=== PATIENT | male | born 1980 | race Caucasian/White ===

== ENCOUNTER 2024-08-25 07:32 | Day surgery (SDC) | payer OTHER ==
[2024-08-23 13:39] VITALS: BMI 38.2
[2024-08-25] MEDS ORDERED: Ropivacaine 0.2% HCl/PF 20 ML ONE (08:27)
[2024-08-25] MEDS ORDERED: fentaNYL 50 mcg/mL 1 mL Vial ONE (08:27)
[2024-08-25] MEDS ORDERED: Ropivacaine 0.5% HCl/PF (150 MG/30 ML VIAL) ONE (08:27)
[2024-08-25] MEDS ORDERED: Midazolam HCl 2 mg/2 ml Vial ONE (08:27)
[2024-08-25] MEDS ORDERED: CEFAZOLIN 2 GM VIAL ONE (08:31)
[2024-08-25] MEDS ORDERED: Lidocaine 1% (PF) 30 ML VIAL ONE (08:46)
[2024-08-25] MEDS ORDERED: EPINEPHrine 1 MG/ML VIAL ONE (08:52)
[2024-08-25] MEDS ORDERED: PROPOFOL 20 ML ONE ×2 (09:04→09:10)
[2024-08-25] MEDS ORDERED: Ondansetron PF 4 MG/2 ML Vial ONE (09:05)
[2024-08-25] MEDS ORDERED: Lidocaine 1% PF 5 ML VIAL ONE (09:05)
[2024-08-25] MEDS ORDERED: Ondansetron PF 4 MG/2 ML Vial IVP PRN (09:15)
[2024-08-25] MEDS ORDERED: HYDROcodone/Acetaminophen 10/325 mg Tablet PO PRN ×2 (09:15)
[2024-08-25] MEDS ORDERED: fentaNYL 50 mcg/mL 1 mL Vial SLOW IVP PRN (09:15)
[2024-08-25] MEDS ORDERED: traMADol HCl 50 MG TAB PO PRN ×2 (09:15)
[2024-08-25] MEDS ORDERED: Ropivacaine 0.2% 550 ML 550 ML NERVE BLCK SCH (09:15)
[2024-08-25] MEDS ORDERED: Zolpidem Tartrate 5 MG TAB PO PRN (09:15)
[2024-08-25] MEDS ORDERED: Promethazine HCl 25 MG/ML VIAL IM PRN (09:15)
[2024-08-25] MEDS ORDERED: Ketorolac Tromethamine 30 MG (1 mL) VIAL ONE (09:15)
[2024-08-25] MEDS ORDERED: fentaNYL PF 100 MCG/2 ML SYRINGE ONE (11:36)
== END 2024-08-25 14:37 | disposition home or self-care (01) ==
LOC: SDC 07:32
PROVIDERS: ATTEND Orthopaedic Surgery
PROC: 0LQ60ZZ Repair Left Lower Arm and Wrist Tendon, Open Approach (ICD-10-PCS; principal; 2024-08-25)
DX: S46.212A Strain of muscle, fascia and tendon of other parts of biceps, left arm, initial encounter (principal); E78.5 Hyperlipidemia, unspecified; E03.9 Hypothyroidism, unspecified; E53.8 Deficiency of other specified B group vitamins; Z79.899 Other long term (current) drug therapy; Z98.890 Other specified postprocedural states; Z90.89 Acquired absence of other organs; X50.3XXA Overexertion from repetitive movements, initial encounter
CPT/HCPCS: A4306; A6223; C1713; J0171; J1885; J2250; J2405; J2704; J2795; J3010